=== PATIENT | female | born 1995 | race Caucasian/White ===

== ENCOUNTER 2016-10-30 07:38 | Day surgery (SDC) | payer OTHER ==
[~2016-10-30] VITALS: Ht 160 cm; Wt 55.0 kg
[~2016-10-30 07:38] MED LIST: 0.9% Sodium Chloride 1,000 ML IV SCH; CITA20TA PO; LEVO25CA2 PO; NABU500T PO; Sodium Chloride LOK Flush 10 mL Syringe IV PRN; fentaNYL-PF 50 mCg/mL 2 mL Inj IVPUSH PRN
[2016-10-30 08:50] VITALS: BP 138/89; PULSE 99; RESP 16; O2SAT 98
[2016-10-30 10:15] VITALS: BP 106/56; PULSE 89; RESP 14; O2SAT 97
[2016-10-30 10:20] VITALS: BP 106/62; PULSE 78; RESP 16; O2SAT 99
[2016-10-30 10:27] VITALS: BP 117/78; PULSE 86; RESP 16; O2SAT 98
[2016-10-30 10:30] VITALS: BP 123/76; PULSE 88; RESP 16; O2SAT 98
--- NOTE | 2016-10-30 13:47 | ENDO ---
[address] [address] ENDOSCOPY PROCEDURE PATIENT: ZAN GERARDO : 1995 MR#: [id number] ADMIT: 10/30/2016 JOB ID: [id number] PROCEDURE: Esophagogastroduodenoscopy. INDICATION: Crohn disease with rectal bleeding. The patient's ASA classification is II. Mallampati score is 2. MEDICATIONS: Versed 7 mg, fentanyl 150 mcg. INSTRUMENT USED: GIF-H180J. PROCEDURE DETAILS: After informed consent was obtained, the patient was brought into the GI suite, where she was placed on oxygen via nasal cannula and then monitored with continuous pulse oximeter, telemetry, and blood pressure monitoring. A bite block was placed. Then she was placed in a left lateral decubitus position. Medications were then administered for sedation. The standard EGD scope was inserted through the bite block and advanced under direct visualization to the second portion of the duodenum without difficulty. FINDINGS: 1. Normal appearing duodenal bulb, first and second portion. Multiple random biopsies were obtained. 2. Normal appearing pylorus. Visualization of the antrum and body of the stomach was limited as the patient had a significant gag reflux making inspection suboptimal. 3. Retroflexed views in the rectum revealed a normal-appearing cardia. However, the fundus was not able to be appreciated thoroughly secondary to patient's persisting gagging. At this point, the EGD scope was then withdrawn. The diaphragmatic hiatus was at approximately 39 cm and the GE junction was at 37 cm. At the GE junction, there were superficial ulcerations suggestive of esophagitis. 4. Remainder of the esophagus otherwise unremarkable. IMPRESSION: 1. Hiatal hernia. 2. Esophagitis. RECOMMENDATIONS: 1. PPI daily. 2. Reflux precautions. 3. Proceed to colonoscopy. COMPLICATIONS: None. ESTIMATED BLOOD LOSS: Less than 5 mL. PROCEDURE PERFORMED: Colonoscopy. INDICATION: Crohn disease With rectal bleeding. Please see above for ASA classification, Mallampati score, and medications. Instrument used was a PCF-H180AL. Prep quality was good. PROCEDURE DETAILS: After completion of the EGD exam, a digital rectal exam was performed, which was unremarkable. Colonoscope was then inserted into the rectum and advanced under direct visualization to the cecum, which was identified by the presence of the ileocecal valve and appendiceal orifice. Once the cecum was reached, the colonoscope was withdrawn back to the rectum as the mucosa and lumen were examined. In the rectum, retroflexion was performed. Following retroflexion, remaining air in the rectum was suctioned and procedure was completed. FINDINGS: 1. From the cecum to the mid transverse colon, the mucosa had superficial ulcerations with submucosal erythema and edema consistent with active colitis. There were areas in the transverse colon where the mucosa appeared normal. 2. In the descending colon, there was evidence of pseudopolyps with normal appearing mucosa between the pseudopolyp. Multiple random biopsies were obtained. From 29 cm to the rectum the mucosa appeared normal. 3. Retroflexed views in the rectum were unremarkable. IMPRESSION: Mild to moderately active Crohn's disease. RECOMMENDATIONS: Will plan on starting biologics which he has been exposed to in the past and has had improvement. Will plan to restart that once biopsy results are received. COMPLICATIONS: None. ESTIMATED BLOOD LOSS: Less than 5 mL CC: Patient's primary [place] provider at [place] [facility]
--- NOTE | 2016-11-02 15:58 | PATH ---
SURGICAL PATHOLOGY Attending Physician:Earnest Monterroso CASE STATUS: Signed Out PATIENT NAME: ZAN GERARDO PID: [id number] : 1995 DATE COLLECTED:10/30/2016 18:11 SPECIMEN: 1: Duodenum, Biopsy 2: Gastric, Biopsy 3: Colon, Biopsy 4: Colon, Biopsy 5: Colon, Biopsy 6: Rectum, Biopsy CLINICAL HISTORY: PHX OF CROHN' S 1). DUODENUM BIOPSY 2). GASTRIC BIOPSY 3). RIGHT COLON BIOPSY 4). TRANSVERSE COLON BIOPSY 5). LEFT COLON BIOPSY 6). RECTAL BIOPSY FINAL DIAGNOSIS: 1. Duodenum, Biopsy: Duodenal mucosa with no diagnostic abnormality. Negative for active inflammation, features of sprue, dysplasia and malignancy. 2. Stomach, Biopsies: Antral and body-type mucosa with no diagnostic abnormality. Negative for Helicobacter organisms. Negative for intestinal metaplasia. Negative for dysplasia or malignancy. 3. Right Colon, Biopsies: Chronic colitis with moderate neutrophilic activity. Granulomas are present in association with crypt rupture. Negative for dysplasia and malignancy. 4. Transverse Colon, Biopsy: Chronic colitis with moderate neutrophilic activity including cryptitis and crypt abscesses. Negative for granulomas, dysplasia and malignancy. 5-6. Left Colon, Rectum, Biopsies: Chronic colitis without neutrophilic activity. Negative for granulomas, dysplasia and malignancy. ICD10: K50.90 NOTE: The morphologic appearance is compatible with the provided history of Crohn's disease if infection and medication-related mucosal injury are excluded. GROSS DESCRIPTION: The specimen is received in six formalin filled containers labeled with the patient's name. 1). The specimen is sublabeled "duodenum" and consists of 4 portions of tissue which aggregate to 0.4 x 0.4 x 0.3 CM. The specimen is entirely submitted in cassette 1A. 2). The specimen is sublabeled "gastric" and consists of 3 portions of tissue which aggregate to 0.4 x 0.3 x 0.3 CM. The specimen is entirely submitted in cassette 2A. 3). The specimen is sublabeled "right colon" and consists of 5 portions of tissue which aggregate to 0.4 x 0.4 x 0.3 CM. The specimen is entirely submitted in cassettes 3A. 4). The specimen is sublabeled "transverse colon" and consists of 4 portions of tissue which aggregate to 0.6 x 0.3 x 0.2 CM. The specimen is entirely submitted in cassette 4A. 5). The specimen is sublabeled "left colon" and consists of 5 portions of tissue which aggregate to 0.4 x 0.4 x 0.3 CM. The specimen is entirely submitted in cassette 5A. 6). The specimen is sublabeled "rectal" and consists of 2 portions of tissue which aggregate to 0.3 x 0.3 x 0.2 CM. The specimen is entirely submitted in cassette 6A. 10/30/2016 [facility] ICD-9 CODES: CPT CODES: 1: 85321 2: 94499 3: 64141 4: 27021 5: 85065 6: 84003 Electronically Signed Out Ingrid Coughlin MD [facility] Pathology [facility] [address], [place] [address] Technical component performed at [facility], [facility] [address], [place], [address]
== END 2016-10-30 23:59 | disposition home or self-care (01) ==
LOC: END 07:38
PROVIDERS: ATTEND Internal Medicine Gastroenterology
DX: K50.911 Crohn's disease, unspecified, with rectal bleeding (principal); K44.9 Diaphragmatic hernia without obstruction or gangrene; K20.9 Esophagitis, unspecified; M79.7 Fibromyalgia; M08.80 Other juvenile arthritis, unspecified site; Z87.891 Personal history of nicotine dependence
CPT/HCPCS: 43239; 45380; 88305; 99153; G0500; J2250; J3010; J7030